=== PATIENT | male | born 1965 | race Caucasian/White ===

== ENCOUNTER 2018-09-14 18:10 | Inpatient (IN) ==
[2018-09-14] MEDS ORDERED: MORPHINE 4 MG/1 ML VIAL IV PRN (22:22)
[2018-09-14] MEDS ORDERED: HEPARIN DRIP 25,000 UNITS/500 ML PREMIX IV SCH (22:30)
[2018-09-14 23:12] LABS: Basophils # 0.1 10*3/uL (0.0-0.2); Basophils % 0.9 % (0.0-0.8); Eosinophils # 0.3 10*3/uL (0.0-0.87); Eosinophils % 4.6 % (0.00-10.9); Hematocrit 41.9 VOL% (42.0-52.0); Hemoglobin 14.7 GM/DL (14.0-18.0); Immature Granulocytes % 0.4 %; Immature Granulocytes Absolute 0.03 #; Lymphocytes # 2.7 10*3/uL (1.4-4.0); Lymphocytes % 39.7 % (21.2-54.2); Mean Corpuscular HGB Conc 35.1 GM/DL (32-36); Mean Corpuscular Hemoglobin 32 PG (27-34); Mean Corpuscular Volume 90.3 FL (87-102); Mean Platelet Volume 10.6 FL (9.6-12.0); Monocytes # 0.5 10*3/uL (0.11-0.8); Monocytes % 7.7 % (1.7-12.7); Neutrophils # 3.1 10*3/uL (1.4-7.4); Neutrophils % 46.7 % (38.7-73.9); Platelet Count 184 T/CUMM (130-400); Red Blood Count 4.64 MC/CUMM (3.8-5.5); White Blood Count 6.7 T/CUMM (4-12)
[2018-09-14 23:26] LABS: Calcium 8.8 MG/DL (8.5-10.1); Osmolality,Calculated 276.7 MOS/KG (273-304); Potassium 3.5 MMOL/L (3.5-5.1)
[2018-09-14] MEDS ORDERED: HEPARIN 5,000 UNIT/1 ML VIAL IV PRN (23:52)
[2018-09-15 05:07] LABS: Basophils # 0.1 10*3/uL (0.0-0.2); Basophils % 1.6 % (0.0-0.8); Eosinophils # 0.3 10*3/uL (0.0-0.87); Eosinophils % 5.2 % (0.00-10.9); Hematocrit 42.5 VOL% (42.0-52.0); Hemoglobin 14.8 GM/DL (14.0-18.0); Immature Granulocytes % 0.2 %; Immature Granulocytes Absolute 0.01 #; Lymphocytes # 2.2 10*3/uL (1.4-4.0); Lymphocytes % 45.2 % (21.2-54.2); Mean Corpuscular HGB Conc 34.8 GM/DL (32-36); Mean Corpuscular Hemoglobin 32 PG (27-34); Mean Corpuscular Volume 91.2 FL (87-102); Mean Platelet Volume 10.9 FL (9.6-12.0); Monocytes # 0.5 10*3/uL (0.11-0.8); Monocytes % 10.1 % (1.7-12.7); Neutrophils # 1.9 10*3/uL (1.4-7.4); Neutrophils % 37.7 % (38.7-73.9); Platelet Count 178 T/CUMM (130-400); Red Blood Count 4.66 MC/CUMM (3.8-5.5); Red Cell Distribution Width 11.9 % (9.3-17.3)
[2018-09-15 05:32] LABS: Eosinophils 3 % (0-10); Lymphocytes 55 % (20-55); Platelet Estimate Adequate; Segmented Neutrophils 35 % (50-85); Total Cells Counted 100
[2018-09-15] MEDS: CARVEDILOL 6.25 MG TABLET PO SCH ×2 (08:38→16:32)
[2018-09-15] MEDS: CLOPIDOGREL 75 MG TABLET PO SCH (08:39)
[2018-09-15] MEDS: PANTOPRAZOLE 40 MG TABLET PO SCH (08:39)
[2018-09-15] MEDS: ASPIRIN EC 325 MG TABLET PO SCH (08:39)
[2018-09-15 08:57] LABS: Risk Ratio 1.96; VLDL CHOLESTEROL 14.4 MG/DL
[2018-09-15] MEDS ORDERED: MAGNESIUM SULF RIDER 2 GM in PREMIX 1 EACH IV PRN (09:15)
[2018-09-15] MEDS ORDERED: POTASSIUM CHLORIDE RIDER 10 MEQ in PREMIX 1 EACH IV PRN (09:15)
[2018-09-15] MEDS ORDERED: diphenhydrAMINE CAP 25 MG CAPSULE PO ONE (09:15)
[2018-09-15] MEDS ORDERED: DIAZEPAM 5 MG TABLET PO ONE (09:15)
[2018-09-15] MEDS: SODIUM CHLORIDE 0.9% 1,000 ML IV SCH ×2 (10:32→23:54)
[2018-09-15] MEDS ORDERED: HYDROmorphone 2 MG/1 ML VIAL ONE (11:29)
[2018-09-15] MEDS ORDERED: VERAPAMIL 5 MG/2 ML VIAL ONE (11:30)
[2018-09-15] MEDS ORDERED: MIDAZOLAM 2 MG/2 ML VIAL ONE (11:30)
[2018-09-15] MEDS ORDERED: NITROGLYCERIN DRIP 50 MG/250 ML BOTTLE IV ONE (11:30)
[2018-09-15] MEDS ORDERED: LIDOCAINE 1% 20 ML VIAL ONE (11:30)
[2018-09-15] MEDS ORDERED: HEPARIN 5,000 UNIT/1 ML VIAL ONE (12:20)
[2018-09-15] MEDS ORDERED: ONDANSETRON 4 MG/2 ML VIAL IV PRN (12:41)
[2018-09-15] MEDS ORDERED: ACETAMINOPHEN 325 MG TABLET PO PRN (12:41)
[2018-09-15] MEDS ORDERED: NITROGLYCERIN SL 0.4 MG TABLET SL PRN (12:41)
[2018-09-15] MEDS ORDERED: ZALEPLON 5 MG CAPSULE PO PRN (12:41)
[2018-09-15] MEDS ORDERED: ATORVASTATIN 40 MG TABLET PO SCH (21:00)
[2018-09-16 04:03] LABS: Basophils # 0.1 10*3/uL (0.0-0.2); Basophils % 0.9 % (0.0-0.8); Eosinophils # 0.2 10*3/uL (0.0-0.87); Eosinophils % 3.7 % (0.00-10.9); Hemoglobin 14.7 GM/DL (14.0-18.0); Immature Granulocytes % 0.2 %; Immature Granulocytes Absolute 0.01 #; Lymphocytes # 1.9 10*3/uL (1.4-4.0); Lymphocytes % 35.9 % (21.2-54.2); Mean Corpuscular HGB Conc 34.2 GM/DL (32-36); Mean Corpuscular Hemoglobin 31 PG (27-34); Mean Corpuscular Volume 91.9 FL (87-102); Mean Platelet Volume 10.4 FL (9.6-12.0); Monocytes # 0.5 10*3/uL (0.11-0.8); Monocytes % 9.6 % (1.7-12.7); Neutrophils # 2.7 10*3/uL (1.4-7.4); Neutrophils % 49.7 % (38.7-73.9); Platelet Count 161 T/CUMM (130-400); Red Blood Count 4.68 MC/CUMM (3.8-5.5); White Blood Count 5.4 T/CUMM (4-12)
[2018-09-16 04:19] LABS: Calcium 8.6 MG/DL (8.5-10.1); Osmolality,Calculated 280.3 MOS/KG (273-304); Potassium 3.9 MMOL/L (3.5-5.1)
[2018-09-16] MEDS: SODIUM CHLORIDE 0.9% 1,000 ML IV SCH ×2 (04:54→12:30)
[2018-09-16] MEDS: PANTOPRAZOLE 40 MG TABLET PO SCH (09:29)
[2018-09-16] MEDS: CARVEDILOL 6.25 MG TABLET PO SCH (09:29)
[2018-09-16] MEDS: CLOPIDOGREL 75 MG TABLET PO SCH (09:29)
[2018-09-16] MEDS: ASPIRIN EC 325 MG TABLET PO SCH (09:29)
[2018-09-16 12:10] VITALS: BP 122/58
== END 2018-09-16 13:30 | disposition home or self-care (01) | DRG 287 ==
LOC: N.TELES → OBSVTOIN 21:10 → SUATTDRO 21:10 → N.TELES 21:19
PROVIDERS: ADMIT Internal Medicine; ATTEND Internal Medicine
PROC: CLCCHCL (ICD-10-PCS; 2018-09-15 11:45)